=== PATIENT | female | born 1960 | race Caucasian/White ===

== ENCOUNTER 2018-06-12 17:32 | Emergency (ER) | payer MEDICARE, MEDICAID ==
[~2018-06-12] VITALS: Ht 160 cm; Wt 104.5 kg
[~2018-06-12 17:32] MED LIST: ALBU18HF2 INH; ALBU8.5H8 IH; ASPI81TA49 PO; CARV3.12 PO; FURO40TA4 PO; LISI-604 PO
[2018-06-12 18:20] VITALS: BP 125/91
== END 2018-06-12 18:22 | disposition home or self-care (01) ==
LOC: ER 17:32
DX: S60.454A Superficial foreign body of right ring finger, initial encounter (principal); F15.90 Other stimulant use, unspecified, uncomplicated; J44.9 Chronic obstructive pulmonary disease, unspecified; Z88.5 Allergy status to narcotic agent; Z88.1 Allergy status to other antibiotic agents; Z79.82 Long term (current) use of aspirin; Z79.899 Other long term (current) drug therapy; W45.8XXA Other foreign body or object entering through skin, initial encounter; Y93.89 Activity, other specified; Y92.89 Other specified places as the place of occurrence of the external cause; Y99.8 Other external cause status
CPT/HCPCS: 99284

== ENCOUNTER → 2021-04-28 | Emergency (ER) | payer MEDICARE, MEDICAID ==
[~2021-04-28] VITALS: Ht 160 cm; Wt 113.6 kg
[~2021-04-28] MED LIST changes: +ALBU8.5H17 IH; -ALBU8.5H8 IH; -LISI-604 PO; +LISI5TAB22 PO
[2021-04-28 14:00] VITALS: BP 111/64
[2021-04-28 15:10] LABS: CLARITY,URINE SLIGHTLY CLOUDY (Clear); COLOR,URINE YELLOW (Yellow); GLUCOSE, URINE NEGATIVE (Neg); KETONES,URINE NEGATIVE (Neg); LEUKOCYTE ESTERASE ,URINE NEGATIVE (Neg); NITRITES, URINE NEGATIVE (Neg); OCCULT BLOOD,URINE NEGATIVE (Neg); PH,URINE 5.5 (4.8-8.0); PROTEIN,URINE NEGATIVE (Neg); UROBILINOGEN,URINE 0.2 E.U/dL (0.2-1.0)
[2021-04-28 15:13] LABS: UA COLLECTION TYPE CLN CATCH MIDSTREAM
[2021-04-28 15:16] LABS: BACTERIA,URINE FEW /HPF (Neg); SQUAMOUS EPITHELIAL CELL,UR MANY /LPF (FEW)
[2021-04-28 15:18] LABS: RBC,URINE 0-2 /HPF (0-2); WBC,URINE 0-4 /HPF (0-4)
[2021-04-28 15:21] LABS: BASOPHILS # (AUTO) 0.1 X10'3 (0-0.2); BASOPHILS % (AUTO) 0.9 % (0-1); EOSINOPHILS # (AUTO) 0.6 X10'3 (0-0.9); EOSINOPHILS % (AUTO) 4.5 % (0-6); HEMATOCRIT 48.7 % (35.0-45.0); HEMOGLOBIN 16.4 g/dl (12.0-16.0); LYMPHOCYTES # (AUTO) 2.9 X10'3 (1.1-4.8); LYMPHOCYTES % (AUTO) 23.2 % (21-51); MEAN CORPUSCULAR HEMOGLOBIN 31.7 PG (27.0-31.0); MEAN CORPUSCULAR HGB CONC 33.7 g/dL (33.0-36.5); MEAN CORPUSCULAR VOLUME 94.3 FL (78-98); MEAN PLATELET VOLUME 8.7 FL (7.4-10.4); MONOCYTES # (AUTO) 0.8 X10'3 (0-0.9); MONOCYTES % (AUTO) 6.5 % (2-12); NEUTROPHILS # (AUTO) 8.1 X10'3 (1.8-7.7); NEUTROPHILS % (AUTO) 64.9 % (42-75); PLATELET COUNT 311 X10'3 (140-440); RED BLOOD COUNT 5.16 X10'6 (4.20-5.60); RED CELL DISTRIBUTION WIDTH 12.9 % (11.5-14.5); WHITE BLOOD COUNT 12.4 X10'3 (4.5-11.0)
[2021-04-28 15:34] LABS: ALANINE AMINOTRANSFERASE 33 U/L (12-78); ALBUMIN 3.7 G/DL (3.4-5.0); ALBUMIN/GLOBULIN RATIO 1.1 (1.1-1.5); ALKALINE PHOSPHATASE 116 IU/L (46-116); ANION GAP 12 (8-16); ASPARTATE AMINO TRANSFERASE 19 U/L (10-37); BILIRUBIN,TOTAL 0.3 MG/DL (0.1-1.0); BLOOD UREA NITROGEN 10 MG/DL (7-18); CALCIUM 8.6 MG/DL (8.5-10.1); CHLORIDE 105 MMOL/L (99-107); CREATININE 0.91 MG/DL (0.40-0.90); POTASSIUM 4.9 MMOL/L (3.5-5.1); SODIUM 142 MMOL/L (135-145); eGFR 63 ML/MIN
[2021-04-28 15:47] LABS: GLUCOSE 111 MG/DL (70-104)
== END | disposition home or self-care (01) ==
LOC: ER 13:26
DX: R10.9 Unspecified abdominal pain (principal); R39.15 Urgency of urination; R10.31 Right lower quadrant pain; R10.32 Left lower quadrant pain; Z85.51 Personal history of malignant neoplasm of bladder; F15.90 Other stimulant use, unspecified, uncomplicated; Z79.899 Other long term (current) drug therapy; Z88.8 Allergy status to other drugs, medicaments and biological substances; Z88.1 Allergy status to other antibiotic agents; Z79.82 Long term (current) use of aspirin
CPT/HCPCS: 36415; 80053; 81001; 85025; 99281; 99283

== ENCOUNTER 2022-09-24 08:34 | Inpatient (IN) | payer MEDICARE, MEDICAID ==
[~2022-09-24] VITALS: Ht 161.3 cm; Wt 113.6 kg
[2022-09-24] VITALS (26 sets, daily range): BP systolic 116–155; BP diastolic 55–86; PULSE 80–109; RESP 12–24; TEMP 97.7–99.1; O2SAT 88–96
[2022-09-24 09:08] LABS: BASOPHILS # (AUTO) 0.2 X10'3 (0-0.2); BASOPHILS % (AUTO) 1.5 % (0-1); EOSINOPHILS # (AUTO) 0.4 X10'3 (0-0.9); EOSINOPHILS % (AUTO) 3.6 % (0-6); HEMATOCRIT 50.8 % (35.0-45.0); HEMOGLOBIN 16.9 g/dl (12.0-16.0); LYMPHOCYTES # (AUTO) 2.3 X10'3 (1.1-4.8); LYMPHOCYTES % (AUTO) 19.3 % (21-51); MEAN CORPUSCULAR HEMOGLOBIN 31.8 PG (27.0-31.0); MEAN CORPUSCULAR HGB CONC 33.3 g/dL (33.0-36.5); MEAN CORPUSCULAR VOLUME 95.6 FL (78-98); MEAN PLATELET VOLUME 9.3 FL (7.4-10.4); MONOCYTES # (AUTO) 0.8 X10'3 (0-0.9); MONOCYTES % (AUTO) 6.8 % (2-12); NEUTROPHILS # (AUTO) 8.1 X10'3 (1.8-7.7); NEUTROPHILS % (AUTO) 68.8 % (42-75); PLATELET COUNT 260 X10'3 (140-440); RED BLOOD COUNT 5.32 X10'6 (4.20-5.60); RED CELL DISTRIBUTION WIDTH 13.7 % (11.5-14.5); WHITE BLOOD COUNT 11.8 X10'3 (4.5-11.0)
[2022-09-24 09:56] LABS: ALANINE AMINOTRANSFERASE 49 U/L (12-78); ALBUMIN 3.6 G/DL (3.4-5.0); ALBUMIN/GLOBULIN RATIO 1.1 (1.1-1.5); ALKALINE PHOSPHATASE 150 IU/L (46-116); ANION GAP 12 (8-16); ASPARTATE AMINO TRANSFERASE 22 U/L (10-37); BILIRUBIN,TOTAL 0.2 MG/DL (0.1-1.0); BLOOD UREA NITROGEN 15 MG/DL (7-18); CHLORIDE 104 MMOL/L (99-107); CREATININE 0.79 MG/DL (0.40-0.90); LIPASE 148 U/L (73-393); POTASSIUM 4.6 MMOL/L (3.5-5.1); SODIUM 139 MMOL/L (135-145); TOTAL CARBON DIOXIDE 23.2 MMOL/L (24-32); TOTAL PROTEIN 6.9 G/DL (6.4-8.2); eGFR 74 ML/MIN
[2022-09-24 10:07] LABS: CALCIUM 9.3 MG/DL (8.5-10.1)
[2022-09-24 10:09] LABS: GLUCOSE 148 MG/DL (70-104)
[2022-09-24 10:17] LABS: CLARITY,URINE CLEAR (Clear); COLOR,URINE YELLOW (Yellow); GLUCOSE, URINE NEGATIVE (Neg); KETONES,URINE NEGATIVE (Neg); LEUKOCYTE ESTERASE ,URINE NEGATIVE (Neg); NITRITES, URINE NEGATIVE (Neg); OCCULT BLOOD,URINE NEGATIVE (Neg); PROTEIN,URINE NEGATIVE (Neg)
[2022-09-24 10:18] LABS: UA COLLECTION TYPE VOIDED
[2022-09-24 10:21] LABS: URINE HCG NEGATIVE (NEG)
[2022-09-24] MEDS ORDERED: ondansetron 4mg rapidly disintigrating tab PO ONE (10:45)
[2022-09-24] MEDS ORDERED: fentaNYL/PF 50MCG/1 ML 2ML syringe IM ONE (10:45)
[2022-09-24] MEDS ORDERED: dicyclomine 10mg/ml 2ml ampule IM ONE (10:45)
[2022-09-24] MEDS ORDERED: fentaNYL/PF 50MCG/1 ML 2ML syringe IV ONE (12:05)
[2022-09-24] MEDS ORDERED: ketorolac trometh. 30mg/ml inj. IV ONE (12:05)
[2022-09-24] MEDS ORDERED: normal saline 1000ml 1,000 ML IV ONE (12:15)
[2022-09-24] MEDS ORDERED: piperacillin/tazo 4.5gm/100ml 100 ML IV ONE (12:29)
[2022-09-24] MEDS ORDERED: magnesium hydroxide 30ml (MOM) UD suspension PO PRN ×2 (13:20→13:30)
[2022-09-24] MEDS ORDERED: HYDROmorphone/PF 0.2 MG/ML SYRINGE IV PRN ×2 (13:20→13:30)
[2022-09-24] MEDS ORDERED: MESSAGE TO PHARMACY PO ONE ×2 (13:20)
[2022-09-24] MEDS ORDERED: potassium Cl 40MEQ/1/2NS 520ml 520 ML IV PRN ×2 (13:20→13:30)
[2022-09-24] MEDS ORDERED: potassium Cl 20 mEq SR tablet PO PRN ×4 (13:20→13:30)
[2022-09-24] MEDS ORDERED: insulin Lispro (HumaLOG) vial - multi-dose SQ SCH (13:20)
[2022-09-24] MEDS ORDERED: ondansetron/PF 4mg/2ml inj IV PRN ×3 (13:20→14:40)
[2022-09-24] MEDS ORDERED: HYDROmorphone inj. 0.5 MG/0.5 ML DISP.SYRIN IV PRN (13:20)
[2022-09-24] MEDS ORDERED: docusate sod 100mg capsule PO PRN ×2 (13:20→13:30)
[2022-09-24] MEDS ORDERED: magnesium 2GM in 50ml NS 50 ML IV PRN ×2 (13:20→13:30)
[2022-09-24] MEDS ORDERED: magnesium Cl slow-release 64mg tablet PO PRN ×2 (13:20→13:30)
[2022-09-24] MEDS ORDERED: DEXTROSE 15 GM of carb/4 tabs (each vial/BOTTLE has 4 tablets) PO PRN ×4 (13:20→13:30)
[2022-09-24] MEDS ORDERED: mag hydrox/Alum hydrox/simeth 30ml oral suspension PO PRN ×2 (13:20→13:30)
[2022-09-24] MEDS ORDERED: glucagon, human recombinant 1mg kit SUBCUT PRN ×2 (13:20→13:30)
[2022-09-24] MEDS ORDERED: normal saline 1000ml 1,000 ML IV SCH (13:20)
[2022-09-24] MEDS ORDERED: magnesium 4gm in 100ml NS 100 ML IV PRN ×2 (13:20→13:30)
[2022-09-24] MEDS ORDERED: dextrose 50%-water 50ml dispensing syringe IV PRN ×4 (13:20→13:30)
[2022-09-24] MEDS ORDERED: pantoprazole 40mg IV 40 MG in normal saline 100ml IV soln 100 ML IV ONE (13:25)
[2022-09-24 13:43] LABS: HEMOGLOBIN A1C 6.5 % (4.5-6.2)
[2022-09-24] MEDS ORDERED: methylPREDNISolone sod succ 125mg/2ml vial IV ONE (13:45)
--- NOTE | 2022-09-24 14:25 | NUR ---
Pt transferred to OR via guravinger.
[2022-09-24] MEDS ORDERED: LIDOcaine 1% (10mg/ml)w/preservative inj. 20ml MDV ONE (14:29)
[2022-09-24] MEDS ORDERED: BUPIVAcaine/PF 2.5 mg/ml (0.25%) 30ml vial ONE (14:29)
[2022-09-24] MEDS ORDERED: albuterol 2.5 MG/3 ML nebule NEB ONE (14:40)
[2022-09-24] MEDS ORDERED: morphine 4 MG/ML inj SYRINge IV PRN (14:40)
[2022-09-24] MEDS ORDERED: ringers solution, lacted 1,000 ML IV SCH (14:40)
[2022-09-24] MEDS ORDERED: fentaNYL/PF 50MCG/1 ML 2ML syringe IV PRN ×2 (14:40)
[2022-09-24] MEDS ORDERED: hydrALAZINE 20mg/ml inj. IV PRN ×2 (14:40→15:30)
[2022-09-24] MEDS ORDERED: labetalol 20mg/4ml (5mg/ml) syringe IV PRN (14:40)
[2022-09-24] MEDS ORDERED: morphine 2 MG/ML inj. syringe IV PRN (14:40)
[2022-09-24] MEDS: ipratropium/albuterol 3ml nebule NEB SCH ×2 (14:50→19:40)
[2022-09-24] MEDS ORDERED: METF-1203 PO (15:01)
[2022-09-24] MEDS ORDERED: METO-395 PO (15:02)
[2022-09-24] MEDS ORDERED: ROSU5TAB12 PO (15:02)
[2022-09-24] MEDS ORDERED: BENA10TA75 PO (15:02)
[2022-09-24] MEDS ORDERED: FLUT15.815 (15:03)
[2022-09-24] MEDS ORDERED: MULT-1085 PO (15:04)
[2022-09-24] MEDS ORDERED: TIOT4MIS3 INH (15:05)
[2022-09-24] MEDS ORDERED: fluticasone nasal spray 16GM bottle NS PRN (15:25)
[2022-09-24] MEDS ORDERED: heparin, porcine 5000 units/ml vial SQ SCH ×2 (16:00)
[2022-09-24] MEDS ORDERED: dexamethasone sod phosphate 10mg/ml inj ONE (16:05)
[2022-09-24] MEDS ORDERED: sevoflurane 250ml liquid IH ONE (16:05)
[2022-09-24] MEDS ORDERED: fentaNYL/PF 50MCG/1 ML 2ML syringe ONE ×2 (16:13→16:27)
[2022-09-24] MEDS ORDERED: midazolam 1 mg/ML 2ml injection ONE (16:17)
[2022-09-24] MEDS ORDERED: LIDOcaine 2% (20mg/ml) 5ml vial ONE (16:25)
[2022-09-24] MEDS ORDERED: propofol inj 20 ML IV ONE (16:25)
[2022-09-24] MEDS ORDERED: ondansetron/PF 4mg/2ml inj ONE (16:25)
[2022-09-24] MEDS ORDERED: rocuronium 10mg/ml inj IV ONE (16:25)
[2022-09-24] MEDS ORDERED: sugammadex 200mg/2ml injection IV ONE (16:43)
[2022-09-24] MEDS ORDERED: INDOCYANINE GREEN 25 MG/10 ML VIAL IV ONE (16:46)
[2022-09-24] MEDS ORDERED: BUPIVAcaine/PF 2.5 mg/ml (0.25%) 30ml vial IJ ONE (16:53)
[2022-09-24] MEDS ORDERED: LIDOcaine 1% 30ml preserv. free vial IJ ONE (16:54)
[2022-09-24] MEDS ORDERED: naloxone 0.4 mg/ml inj IV PRN (18:10)
[2022-09-24] MEDS ORDERED: HYDROcodone/acetaminophen 5mg/325mg tablet PO PRN (18:10)
--- NOTE | 2022-09-24 18:10 | NUR ---
Received from OR via HOPITAL BED TO RR #3, accompanied by Anesthesiologist and report given by Anesthesiologist, TATIANNA. PATIENT STILL SLEEPING, ORAL AIRWAY IN PLACE, NO S/S OF PAIN, V/S WNL, SCD ON, 18G L FA WITH LR RUNNING, ABDOMEN LAP SITES X 3 CDI W/NO S/S OF COMPLICATIONS. MYRON DRAIN ON RUQ DRAINING.
--- NOTE | 2022-09-24 18:54 | NUR ---
REMOVED ORAL AIRWAY, PATIENT IS RESPONDING TO VOICE AND IS ABLE TO MOVE ALL EXTREMITIES. NO COMPLAINTS OF PAIN AT THIS TIME. WILL CONTINUE TO ASSESS.
--- NOTE | 2022-09-24 19:58 | NUR ---
Patient in room PACU 2. I have received report from DIANN Davies and had the opportunity to ask questions and assume patient care.
[2022-09-24] MEDS: K and/or MAG REPLACEMENT MC SCH (20:00)
[2022-09-24] MEDS ORDERED: K and/or MAG REPLACEMENT MC SCH (20:00)
--- NOTE | 2022-09-24 20:00 | NUR ---
PATIENT TRANSFERRED FROM TO [facility]. GAVE REPORT TO DIANN MCLAUGHLIN AND ALL QUESTIONS, COMMENTS, AND CONCERNS WERE ANSWERED AT THIS TIME. VSS, 3L NC SPO2 92%. MYRON SECURED AND DRAINING ADEQUATELY. ABD LAP SITES X3 CDI. NO COMPLAINTS OF PAIN AT THIS TIME.
[2022-09-24] MEDS: heparin, porcine 5000 units/ml vial SQ SCH (20:19)
[2022-09-24] MEDS: normal saline 1000ml 1,000 ML IV SCH (20:23)
[2022-09-24] MEDS ORDERED: insulin glargine (Lantus) pen - multi-dose SQ SCH (21:00)
[2022-09-24] MEDS: piperacillin/tazo 3.375gm/50ml 50 ML IV SCH (21:02)
[2022-09-24] MEDS: insulin glargine (Lantus) pen - multi-dose SQ SCH (22:10)
[2022-09-24] MEDS: acetaminophen 325mg tablet PO PRN (23:27)
[2022-09-25] VITALS (15 sets, daily range): BP systolic 100–117; BP diastolic 51–60; PULSE 70–111; RESP 16–22; TEMP 97.7–100.1; O2SAT 86–99
[2022-09-25] MEDS: normal saline 1000ml 1,000 ML IV SCH (00:09)
[2022-09-25] MEDS: ipratropium/albuterol 3ml nebule NEB SCH ×4 (02:15→20:17)
[2022-09-25] MEDS: piperacillin/tazo 3.375gm/50ml 50 ML IV SCH ×3 (04:21→20:20)
--- NOTE | 2022-09-25 05:14 | NUR ---
Pt. walked 300f with nursing.She did very well.
--- NOTE | 2022-09-25 06:13 | NUR ---
I have received report from Teresa TIDWELL and had the opportunity to ask questions and assume patient care.
--- NOTE | 2022-09-25 06:23 | NUR ---
Problems reprioritized. Patient report given, questions answered & plan of care reviewed with DIANN Pereira.
[2022-09-25] MEDS: Tiotropium Br/Olodaterol HCl (Stiolto Respimat Inhal Spray) INH SCH (08:00)
[2022-09-25] MEDS: K and/or MAG REPLACEMENT MC SCH ×2 (08:00→20:00)
[2022-09-25] MEDS: insulin Lispro (HumaLOG) vial - multi-dose SQ SCH ×2 (08:51→18:56)
[2022-09-25] MEDS: heparin, porcine 5000 units/ml vial SQ SCH ×2 (08:59→20:21)
[2022-09-25] MEDS: HYDROmorphone inj. 0.5 MG/0.5 ML DISP.SYRIN IV PRN ×2 (09:02→16:07)
--- NOTE | 2022-09-25 09:57 | NUR ---
DM consult: Per EMR pt with T2DM, well controlled with A1c 6.5%. DM education not warranted at this time. Will continue to follow. Addendum: 09/25/22 at [address] Amended: Links added.
--- NOTE | 2022-09-25 18:00 | NUR ---
Patient in room ORTHO 4015. I have received report from DIANN Pereira and had the opportunity to ask questions and assume patient care.
--- NOTE | 2022-09-25 18:14 | NUR ---
Report given to Teresa TIDWELL
--- NOTE | 2022-09-25 18:30 | NUR ---
Patient in room ORTHO 4015. I have received report from DIANN Pereira and had the opportunity to ask questions and assume patient care.
[2022-09-25] MEDS: insulin glargine (Lantus) pen - multi-dose SQ SCH (21:45)
[2022-09-25] MEDS: acetaminophen 325mg tablet PO PRN (21:49)
[2022-09-26] VITALS (11 sets, daily range): BP systolic 116–139; BP diastolic 60–76; PULSE 56–95; RESP 18–22; TEMP 97.9–98.6; O2SAT 88–94
[2022-09-26] MEDS: ipratropium/albuterol 3ml nebule NEB SCH ×4 (02:44→20:38)
[2022-09-26] MEDS: HYDROcodone/acetaminophen 10/325mg tab PO PRN ×2 (03:55→23:09)
[2022-09-26] MEDS: piperacillin/tazo 3.375gm/50ml 50 ML IV SCH ×3 (03:58→20:27)
[2022-09-26 04:40] LABS: ALANINE AMINOTRANSFERASE 59 U/L (12-78); ALBUMIN 2.8 G/DL (3.4-5.0); ALBUMIN/GLOBULIN RATIO 0.8 (1.1-1.5); ALKALINE PHOSPHATASE 65 IU/L (46-116); ANION GAP 7 (8-16); ASPARTATE AMINO TRANSFERASE 32 U/L (10-37); BILIRUBIN,TOTAL 0.4 MG/DL (0.1-1.0); BLOOD UREA NITROGEN 10 MG/DL (7-18); BUN/CREATININE RATIO 15.9 (10.0-20.0); CALCIUM 8.2 MG/DL (8.5-10.1); CHLORIDE 101 MMOL/L (99-107); CREATININE 0.63 MG/DL (0.40-0.90); GLUCOSE 150 MG/DL (70-104); POTASSIUM 4.5 MMOL/L (3.5-5.1); SODIUM 136 MMOL/L (135-145); TOTAL CARBON DIOXIDE 27.6 MMOL/L (24-32); TOTAL PROTEIN 6.3 G/DL (6.4-8.2); eGFR > 90 ML/MIN
--- NOTE | 2022-09-26 06:06 | NUR ---
Problems reprioritized. Patient report given, questions answered & plan of care reviewed with DIANN Pereira.
--- NOTE | 2022-09-26 06:07 | NUR ---
Patient in room ORTHO 4015. I have received report from Chantal TIDWELL and had the opportunity to ask questions and assume patient care.
[2022-09-26] MEDS: Tiotropium Br/Olodaterol HCl (Stiolto Respimat Inhal Spray) INH SCH (06:49)
[2022-09-26] MEDS: heparin, porcine 5000 units/ml vial SQ SCH ×2 (07:34→20:29)
[2022-09-26] MEDS: K and/or MAG REPLACEMENT MC SCH ×2 (08:00→20:49)
[2022-09-26] MEDS: insulin Lispro (HumaLOG) vial - multi-dose SQ SCH ×3 (08:48→18:46)
--- NOTE | 2022-09-26 10:09 | NUR ---
O2 Sat at rest on room air:_77__% If below 89%: Recovery O2 Sat at rest on ___LPM:_5__%:__89_% via_NC_(mask/nasal cannula, etc..) No further documentation is necessary. If O2 Sat did not drop below 89% on room air,ambulate patient on room air. O2 Sat while ambulating on room air:___% Recovery O2 Sat while ambulating on ___LPM:___% No further documentation is necessary. If patient does not drop below 89% while ambulating, he/she does not qualify for home O2. Addendum: 09/26/22 at 1011 by Kelli Chamorro RN Recovery O2 Sat at rest on __5_LPM:_88__%:__90_% via_NC_(mask/nasal cannula, etc..) No further documentation is necessary.
[2022-09-26] MEDS: HYDROmorphone inj. 0.5 MG/0.5 ML DISP.SYRIN IV PRN (10:31)
--- NOTE | 2022-09-26 10:41 | NUR ---
PAGER ID: [phone] MESSAGE: [id number] She is very wheezy and coughing a lot, SOB. RT and I agree that she may benfit from some lasix...??? Kelli [phone]
[2022-09-26] MEDS ORDERED: methylPREDNISolone sod succ 125mg/2ml vial IV SCH (10:50)
[2022-09-26] MEDS ORDERED: furosemide 20 MG/2 ML vial IV ONE (10:50)
[2022-09-26] MEDS ORDERED: HYDROmorphone inj. 0.5 MG/0.5 ML DISP.SYRIN IV PRN (10:55)
[2022-09-26] MEDS: budesonide 0.5mg/2ml UD nebule IH SCH ×2 (10:55→20:38)
[2022-09-26] MEDS ORDERED: HYDROmorphone/PF 0.2 MG/ML SYRINGE IV PRN (10:55)
[2022-09-26 11:34] LABS: ABG BASE EXCESS 3.1 mmol/L (-2.0-2.0); ABG HCO3 31.5 mmol/L (22.0-26.0); ABG OXYGEN SATURATION 91.5 % (94-97); ABG PCO2 (T) 63.5 mmHg (32.0-45.0); ABG PO2 (T) 62.4 mmHg (75.0-100.0); ALLEN'S TEST POSITIVE; FLOW 5 L/min; FMetHb 0.4 % (0.0-1.5); FO2Hb 90.2 % (94-97); TOTAL HEMOGLOBIN 15.9 G/dl (12.0-16.0)
[2022-09-26 17:54] LABS: ABG HCO3 26.7 mmol/L (22.0-26.0); ABG PO2 (T) 59.2 mmHg (75.0-100.0); ALLEN'S TEST POSITIVE; FCOHb 0.7 % (0.0-3.9); FLOW 5 L/min; FMetHb 0.3 % (0.0-1.5); FO2Hb 90.1 % (94-97); TOTAL HEMOGLOBIN 16.1 G/dl (12.0-16.0)
--- NOTE | 2022-09-26 18:00 | NUR ---
Patient in room ORTHO 4015. I have received report from DIANN Pereira and had the opportunity to ask questions and assume patient care.
--- NOTE | 2022-09-26 18:09 | NUR ---
Problems reprioritized. Patient report given, questions answered & plan of care reviewed with Snow TIDWELL.
[2022-09-26] MEDS: methylPREDNISolone sod succ/PF 40mg inj. IV SCH (20:28)
[2022-09-26] MEDS: insulin glargine (Lantus) pen - multi-dose SQ SCH (20:46)
[2022-09-27] VITALS (16 sets, daily range): BP systolic 107–134; BP diastolic 58–68; PULSE 50–104; RESP 18–23; TEMP 97.5–98.1; O2SAT 73–95
[2022-09-27] MEDS: normal saline 1000ml 1,000 ML IV SCH (00:26)
[2022-09-27] MEDS: ipratropium/albuterol 3ml nebule NEB SCH ×4 (02:57→20:35)
[2022-09-27] MEDS: piperacillin/tazo 3.375gm/50ml 50 ML IV SCH ×3 (03:47→19:48)
--- NOTE | 2022-09-27 06:08 | NUR ---
Problems reprioritized. Patient report given, questions answered & plan of care reviewed with DIANN Pereira.
[2022-09-27] MEDS: budesonide 0.5mg/2ml UD nebule IH SCH ×2 (07:55→20:35)
[2022-09-27] MEDS ORDERED: enoxaparin 100mg/ml syringe SUBCUT SCH (08:00)
[2022-09-27] MEDS: Tiotropium Br/Olodaterol HCl (Stiolto Respimat Inhal Spray) INH SCH (08:00)
[2022-09-27] MEDS: methylPREDNISolone sod succ/PF 40mg inj. IV SCH ×2 (08:38→19:49)
[2022-09-27] MEDS: heparin, porcine 5000 units/ml vial SQ SCH ×2 (08:39→19:49)
[2022-09-27] MEDS: K and/or MAG REPLACEMENT MC SCH ×2 (08:40→20:00)
[2022-09-27] MEDS: insulin Lispro (HumaLOG) vial - multi-dose SQ SCH ×3 (08:43→19:35)
--- NOTE | 2022-09-27 11:00 | NUR ---
Patient found by window in chair with no O2 on. O2 sats were at 77%. RT placed 6L O2 on patient to bring them up to the high 80's. Patient SOB and falling asleep in chiar.
[2022-09-27] MEDS ORDERED: AMOX-419 PO (15:25)
--- NOTE | 2022-09-27 15:57 | NUR ---
Message sent to Dr. Harmon concerning patients discharge. Patient is not to be discharged at this time.
--- NOTE | 2022-09-27 16:02 | NUR ---
O2 Sat at rest on room air: 79% If below 89%: Recovery O2 Sat at rest on 4 LPM: 92%: 94% via__Nasal Cannula (mask/nasal cannula, etc..) No further documentation is necessary. If O2 Sat did not drop below 89% on room air,ambulate patient on room air. O2 Sat while ambulating on room air:___% Recovery O2 Sat while ambulating on ___LPM:___% No further documentation is necessary. If patient does not drop below 89% while ambulating, he/she does not qualify for home O2.
--- NOTE | 2022-09-27 18:31 | NUR ---
Report given to Dayo TIDWELL
[2022-09-27] MEDS: insulin glargine (Lantus) pen - multi-dose SQ SCH (22:23)
[2022-09-28] VITALS (12 sets, daily range): BP systolic 102–136; BP diastolic 65–91; PULSE 54–91; RESP 16–24; TEMP 97.5–98.1; O2SAT 2–97
[2022-09-28] MEDS: ipratropium/albuterol 3ml nebule NEB SCH ×5 (02:51→20:57)
[2022-09-28] MEDS: piperacillin/tazo 3.375gm/50ml 50 ML IV SCH ×3 (04:10→19:55)
--- NOTE | 2022-09-28 06:17 | NUR ---
Patient in room ORTHO [facility]. I have received report from Dayo TIDWELL and had the opportunity to ask questions and assume patient care. Addendum: 09/28/22 at 0659 by Kelli Chamorro RN Room [facility]
--- NOTE | 2022-09-28 06:28 | NUR ---
Problems reprioritized. Patient report given, questions answered & plan of care reviewed with DESTINY. Addendum: 09/28/22 at 0628 by Pierre Craig RN Amended: Links added.
[2022-09-28] MEDS: methylPREDNISolone sod succ/PF 40mg inj. IV SCH ×2 (07:53→19:42)
[2022-09-28] MEDS: heparin, porcine 5000 units/ml vial SQ SCH ×3 (07:53→19:42)
[2022-09-28] MEDS: K and/or MAG REPLACEMENT MC SCH ×2 (08:00→20:00)
[2022-09-28] MEDS: Tiotropium Br/Olodaterol HCl (Stiolto Respimat Inhal Spray) INH SCH (08:00)
[2022-09-28] MEDS: insulin Lispro (HumaLOG) vial - multi-dose SQ SCH ×3 (08:07→19:45)
[2022-09-28] MEDS: budesonide 0.5mg/2ml UD nebule IH SCH ×2 (08:19→20:57)
--- NOTE | 2022-09-28 09:54 | NUR ---
Paged CM for O2 home.
[2022-09-28] MEDS ORDERED: nicotine 21mg patch - 24 hr TD ONE (10:45)
[2022-09-28] MEDS ORDERED: LORazepam 2 mg/ml vial IV ONE (10:45)
[2022-09-28 11:20] LABS: BASOPHILS # (AUTO) 0.1 X10'3 (0-0.2); BASOPHILS % (AUTO) 0.5 % (0-1); EOSINOPHILS % (AUTO) 0.3 % (0-6); HEMATOCRIT 45.9 % (35.0-45.0); HEMOGLOBIN 15.1 g/dl (12.0-16.0); LYMPHOCYTES # (AUTO) 1.4 X10'3 (1.1-4.8); LYMPHOCYTES % (AUTO) 9.9 % (21-51); MEAN CORPUSCULAR HEMOGLOBIN 31.8 PG (27.0-31.0); MEAN CORPUSCULAR HGB CONC 32.8 g/dL (33.0-36.5); MEAN CORPUSCULAR VOLUME 96.8 FL (78-98); MEAN PLATELET VOLUME 9.8 FL (7.4-10.4); MONOCYTES % (AUTO) 7.3 % (2-12); NEUTROPHILS # (AUTO) 11.6 X10'3 (1.8-7.7); PLATELET COUNT 295 X10'3 (140-440); RED BLOOD COUNT 4.74 X10'6 (4.20-5.60); RED CELL DISTRIBUTION WIDTH 13.6 % (11.5-14.5); WHITE BLOOD COUNT 14.2 X10'3 (4.5-11.0)
[2022-09-28 11:32] LABS: ALANINE AMINOTRANSFERASE 96 U/L (12-78); ALBUMIN 2.9 G/DL (3.4-5.0); ALBUMIN/GLOBULIN RATIO 0.8 (1.1-1.5); ALKALINE PHOSPHATASE 71 IU/L (46-116); ANION GAP 10 (8-16); ASPARTATE AMINO TRANSFERASE 43 U/L (10-37); BILIRUBIN,TOTAL 0.3 MG/DL (0.1-1.0); BLOOD UREA NITROGEN 19 MG/DL (7-18); CALCIUM 9.2 MG/DL (8.5-10.1); CHLORIDE 102 MMOL/L (99-107); CREATININE 0.73 MG/DL (0.40-0.90); POTASSIUM 4.4 MMOL/L (3.5-5.1); SODIUM 140 MMOL/L (135-145); TOTAL CARBON DIOXIDE 27.9 MMOL/L (24-32); TOTAL PROTEIN 6.5 G/DL (6.4-8.2); eGFR 81 ML/MIN
[2022-09-28 11:37] LABS: GLUCOSE 113 MG/DL (70-104)
[2022-09-28] MEDS ORDERED: LORazepam 1 MG tablet PO PRN (17:30)
--- NOTE | 2022-09-28 18:22 | NUR ---
Report given to MONSERRAT TIDWELL.
[2022-09-28] MEDS: insulin glargine (Lantus) pen - multi-dose SQ SCH (21:50)
[2022-09-29] VITALS (9 sets, daily range): BP systolic 95–125; BP diastolic 63–71; PULSE 72–89; RESP 14–18; TEMP 97.6–98.2; O2SAT 92–96
[2022-09-29] MEDS: normal saline 1000ml 1,000 ML IV SCH (00:26)
[2022-09-29] MEDS: ipratropium/albuterol 3ml nebule NEB SCH ×2 (02:37→08:07)
[2022-09-29] MEDS: piperacillin/tazo 3.375gm/50ml 50 ML IV SCH (04:23)
--- NOTE | 2022-09-29 06:49 | NUR ---
Patient in room ORTHO 4015. I have received report from Elle RN and had the opportunity to ask questions and assume patient care.
[2022-09-29] MEDS: Tiotropium Br/Olodaterol HCl (Stiolto Respimat Inhal Spray) INH SCH (08:00)
[2022-09-29] MEDS: K and/or MAG REPLACEMENT MC SCH (08:00)
[2022-09-29] MEDS: methylPREDNISolone sod succ/PF 40mg inj. IV SCH (08:00)
[2022-09-29] MEDS: budesonide 0.5mg/2ml UD nebule IH SCH (08:06)
--- NOTE | 2022-09-29 09:23 | NUR ---
O2 Sat at rest on room air:_88__% If below 89%: Recovery O2 Sat at rest on __2_LPM:_95__%:_95__% via nasal cannula No further documentation is necessary. If O2 Sat did not drop below 89% on room air,ambulate patient on room air. O2 Sat while ambulating on room air:___% Recovery O2 Sat while ambulating on ___LPM:___% No further documentation is necessary. If patient does not drop below 89% while ambulating, he/she does not qualify for home O2.
[2022-09-29] MEDS: insulin Lispro (HumaLOG) vial - multi-dose SQ SCH (09:35)
--- NOTE | 2022-09-29 11:00 | NUR ---
I have reviewed and agree with interventions, assessments, and documentation by Zaida Cifuentes LVN.
[2022-09-29] MEDS ORDERED: nicotine 21mg patch - 24 hr TD ONE (11:25)
--- NOTE | 2022-09-29 12:36 | NUR ---
Message: [id number]-Mohinder Lama- ulises call me regarding this patient. ADIA Cerda [phone]
[2022-09-29] MEDS ORDERED: PRED10TA23 PO (13:21)
--- NOTE | 2022-09-29 13:59 | NUR ---
Patient discharged home today. All instructions were explained and all questions were answered. Patient alert and appropriate. Patient gathered all belongings and wheeled downstairs. Patient left in friends vehicle.
== END 2022-09-29 13:38 | disposition home or self-care (01) | DRG 417 ==
LOC: ER 08:34 → ED HOLD 13:24 → ER 13:27 → PACU 17:28 → ORTHO 4S 20:02
PROVIDERS: ADMIT Internal Medicine; ATTEND Internal Medicine
PROC: 8E0W4CZ Robotic Assisted Procedure of Trunk Region, Percutaneous Endoscopic Approach (ICD-10-PCS; 2022-09-24)
PROC: BF532Z0 Other Imaging of Gallbladder and Bile Ducts using Fluorescing Agent, Intraoperative (ICD-10-PCS; 2022-09-24)
PROC: 0FT44ZZ Resection of Gallbladder, Percutaneous Endoscopic Approach (ICD-10-PCS; principal; 2022-09-24 16:05)
PROC: 5A09357 Assistance with Respiratory Ventilation, Less than 24 Consecutive Hours, Continuous Positive Airway Pressure (ICD-10-PCS; 2022-09-27)
PROC: 5A09357 Assistance with Respiratory Ventilation, Less than 24 Consecutive Hours, Continuous Positive Airway Pressure (ICD-10-PCS; 2022-09-29)
DX: K80.00 Calculus of gallbladder with acute cholecystitis without obstruction (principal); J96.01 Acute respiratory failure with hypoxia; J96.02 Acute respiratory failure with hypercapnia; I50.22 Chronic systolic (congestive) heart failure; K82.1 Hydrops of gallbladder; Z68.41 Body mass index [BMI] 40.0-44.9, adult; J44.1 Chronic obstructive pulmonary disease with (acute) exacerbation; E66.01 Morbid (severe) obesity due to excess calories; F15.90 Other stimulant use, unspecified, uncomplicated; F17.210 Nicotine dependence, cigarettes, uncomplicated; I11.0 Hypertensive heart disease with heart failure; Z85.51 Personal history of malignant neoplasm of bladder; Z90.710 Acquired absence of both cervix and uterus; Z88.5 Allergy status to narcotic agent; Z88.8 Allergy status to other drugs, medicaments and biological substances; Z79.899 Other long term (current) drug therapy; Z79.82 Long term (current) use of aspirin; Z71.6 Tobacco abuse counseling
CPT/HCPCS: 36415; 36600; 71045; 74176; 76700; 80053; 81003; 81025; 82803; 82948; 83036; 83605; 83690; 83880; 84145; 84484; 85018; 85025; 87040; 88304; 93005; 93306; 94640; 94660; 94760; 99285; A4215; A4615; A4618; A6212; A6213; A6258; A6449; A7000; G0378; J0500; J1100; J1170; J1644; J1815; J1940; J2060; J2250; J2405; J2543; J2704; J2920; J2930; J3010; J3490; J7030; J7040; J7120

== ENCOUNTER 2022-12-22 15:41 | Emergency (ER) | payer MEDICARE, MEDICAID ==
[~2022-12-22] VITALS: Ht 160 cm; Wt 120.0 kg
[~2022-12-22 15:41] MED LIST changes: -ALBU8.5H17 IH; -ASPI81TA49 PO; +BENA10TA75 PO; -CARV3.12 PO; +FLUT15.815; -FURO40TA4 PO; -LISI5TAB22 PO; +METF-1203 PO; +METO-395 PO; +MULT-1085 PO; +ROSU5TAB12 PO; +TIOT4MIS3 INH
[2022-12-22 15:47] VITALS: RESP 18
[2022-12-22 17:20] VITALS: TEMP 97.3
[2022-12-22] MEDS ORDERED: ondansetron/PF 4mg/2ml inj IV ONE (18:10)
[2022-12-22] MEDS ORDERED: morphine 4 MG/ML inj SYRINge IV ONE (18:10)
[2022-12-22 18:13] LABS: BASOPHILS # (AUTO) 0.1 X10'3 (0-0.2); BASOPHILS % (AUTO) 0.6 % (0-1); EOSINOPHILS # (AUTO) 0.5 X10'3 (0-0.9); EOSINOPHILS % (AUTO) 3.6 % (0-6); HEMATOCRIT 51.8 % (35.0-45.0); HEMOGLOBIN 17.2 g/dl (12.0-16.0); LYMPHOCYTES % (AUTO) 15.7 % (21-51); MEAN CORPUSCULAR HEMOGLOBIN 32.2 PG (27.0-31.0); MEAN CORPUSCULAR HGB CONC 33.2 g/dL (33.0-36.5); MEAN CORPUSCULAR VOLUME 97.1 FL (78-98); MEAN PLATELET VOLUME 9.3 FL (7.4-10.4); MONOCYTES % (AUTO) 8.2 % (2-12); NEUTROPHILS # (AUTO) 9.2 X10'3 (1.8-7.7); NEUTROPHILS % (AUTO) 71.9 % (42-75); PLATELET COUNT 270 X10'3 (140-440); RED BLOOD COUNT 5.33 X10'6 (4.20-5.60); RED CELL DISTRIBUTION WIDTH 13.7 % (11.5-14.5); WHITE BLOOD COUNT 12.7 X10'3 (4.5-11.0)
[2022-12-22 18:28] LABS: ALANINE AMINOTRANSFERASE 38 U/L (12-78); ALBUMIN 3.7 G/DL (3.4-5.0); ALKALINE PHOSPHATASE 106 IU/L (46-116); AMYLASE 47 U/L (25-115); ANION GAP 9 (8-16); ASPARTATE AMINO TRANSFERASE 17 U/L (10-37); BILIRUBIN,TOTAL 0.6 MG/DL (0.1-1.0); BLOOD UREA NITROGEN 10 MG/DL (7-18); BUN/CREATININE RATIO 12.7 (10.0-20.0); CALCIUM 9.6 MG/DL (8.5-10.1); CHLORIDE 101 MMOL/L (99-107); CREATININE 0.79 MG/DL (0.40-0.90); POTASSIUM 4.2 MMOL/L (3.5-5.1); SODIUM 140 MMOL/L (135-145); TOTAL CARBON DIOXIDE 29.9 MMOL/L (24-32); TOTAL PROTEIN 7.4 G/DL (6.4-8.2); eCRCL 63 ML/MIN; eGFR 74 ML/MIN
[2022-12-22 18:30] LABS: GLUCOSE 117 MG/DL (70-104); LIPASE 43 U/L (16-77)
[2022-12-22] MEDS ORDERED: HYDROcodone/acetaminophen 5mg/325mg tablet PO ONE (20:55)
[2022-12-22] MEDS ORDERED: amox tr/potassium clavulanate 875/125mg TAB PO ONE (20:55)
[2022-12-22] MEDS ORDERED: HYDR-3965 PO ×2 (21:09→21:16)
[2022-12-22] MEDS ORDERED: AMOX-117 PO (21:09)
--- NOTE | 2022-12-22 22:00 | NUR ---
recieved pt from triage. Pt is a&o x4, ambulatory, good historian. Pt presents c known hernia and diverticulitis. Pt c/o abdominal pain. PIV established, VSS
[2022-12-22 22:01] VITALS: BP 117/69; PULSE 94; O2SAT 92
== END 2022-12-22 22:04 | disposition home or self-care (01) ==
LOC: ER 15:42
DX: K57.92 Diverticulitis of intestine, part unspecified, without perforation or abscess without bleeding (principal)
CPT/HCPCS: 36415; 74176; 80053; 82150; 83690; 85025; 96374; 96375; 99285; J2270; J2405

== ENCOUNTER 2023-02-22 11:05 | Day surgery (SDC) | payer MEDICARE, MEDICAID ==
[2023-02-18 15:16] LABS: BASOPHILS # (AUTO) 0.1 X10'3 (0-0.2); BASOPHILS % (AUTO) 1.1 % (0-1); EOSINOPHILS # (AUTO) 0.4 X10'3 (0-0.9); EOSINOPHILS % (AUTO) 4.6 % (0-6); HEMATOCRIT 49.6 % (35.0-45.0); HEMOGLOBIN 16.3 g/dl (12.0-16.0); LYMPHOCYTES # (AUTO) 2.4 X10'3 (1.1-4.8); LYMPHOCYTES % (AUTO) 25.7 % (21-51); MEAN CORPUSCULAR HEMOGLOBIN 31.8 PG (27.0-31.0); MEAN CORPUSCULAR HGB CONC 32.8 g/dL (33.0-36.5); MEAN CORPUSCULAR VOLUME 96.8 FL (78-98); MEAN PLATELET VOLUME 9.2 FL (7.4-10.4); MONOCYTES % (AUTO) 10.3 % (2-12); NEUTROPHILS # (AUTO) 5.5 X10'3 (1.8-7.7); NEUTROPHILS % (AUTO) 58.3 % (42-75); PLATELET COUNT 269 X10'3 (140-440); RED BLOOD COUNT 5.13 X10'6 (4.20-5.60); RED CELL DISTRIBUTION WIDTH 13.7 % (11.5-14.5); WHITE BLOOD COUNT 9.4 X10'3 (4.5-11.0)
[2023-02-18 15:19] LABS: ALANINE AMINOTRANSFERASE 34 U/L (12-78); ALBUMIN 3.3 G/DL (3.4-5.0); ALBUMIN/GLOBULIN RATIO 0.9 (1.1-1.5); ALKALINE PHOSPHATASE 110 IU/L (46-116); ANION GAP 6 (8-16); ASPARTATE AMINO TRANSFERASE 17 U/L (10-37); BILIRUBIN,TOTAL 0.3 MG/DL (0.1-1.0); BLOOD UREA NITROGEN 11 MG/DL (7-18); BUN/CREATININE RATIO 14.1 (10.0-20.0); CALCIUM 9.1 MG/DL (8.5-10.1); CHLORIDE 102 MMOL/L (99-107); CREATININE 0.78 MG/DL (0.40-0.90); POTASSIUM 4.3 MMOL/L (3.5-5.1); SODIUM 137 MMOL/L (135-145); TOTAL CARBON DIOXIDE 29.3 MMOL/L (24-32); TOTAL PROTEIN 6.8 G/DL (6.4-8.2); eGFR 75 ML/MIN
[2023-02-18 15:22] LABS: GLUCOSE 111 MG/DL (70-104)
[2023-02-22] VITALS (13 sets, daily range): BP systolic 125–143; BP diastolic 45–85; PULSE 72–81; RESP 12–21; TEMP 97.8; O2SAT 88–97
[~2023-02-22] VITALS: Ht 157.5 cm; Wt 112.1 kg
[~2023-02-22 11:05] MED LIST changes: +DOCUMENT DATE & TIME OF BETA-BLOCKER PO ONE; -FLUT15.815; -TIOT4MIS3 INH; +cefazolin 2gm/D5W 100mL 100 ML IV ONE; +famotidine 20mg tablet PO ONE; +ringers solution, lacted 1,000 ML IV SCH
[2023-02-22] MEDS ORDERED: morphine 2 MG/ML inj. syringe IV PRN (12:15)
[2023-02-22] MEDS ORDERED: ringers solution, lacted 1,000 ML IV SCH (12:15)
[2023-02-22] MEDS ORDERED: fentaNYL/PF 50MCG/1 ML 2ML syringe IV PRN ×2 (12:15)
[2023-02-22] MEDS ORDERED: morphine 4 MG/ML inj SYRINge IV PRN (12:15)
[2023-02-22] MEDS ORDERED: labetalol 20mg/4ml (5mg/ml) syringe IV PRN (12:15)
[2023-02-22] MEDS ORDERED: ondansetron/PF 4mg/2ml inj IV PRN (12:15)
[2023-02-22] MEDS ORDERED: hydrALAZINE 20mg/ml inj. IV PRN (12:15)
[2023-02-22] MEDS ORDERED: LIDOcaine 1% 30ml preserv. free vial ONE (13:13)
[2023-02-22] MEDS ORDERED: BUPIVAcaine/PF 2.5mg/ml (0.25%) 10ml vial ONE (13:13)
[2023-02-22] MEDS ORDERED: BUPIVAcaine 2.5mg/ml inj 50ml vial (contains preservative) ONE (13:13)
[2023-02-22] MEDS ORDERED: BUPIVACAINE liposomal/PF 13.3 MG/ML vial IM ONE ×2 (13:14→14:13)
[2023-02-22] MEDS ORDERED: dexamethasone sod phosphate 10mg/ml inj ONE (13:25)
[2023-02-22] MEDS ORDERED: desflurane 240ml liquid inh. IH ONE (13:25)
[2023-02-22] MEDS ORDERED: albuterol 60 PUFF/8GM Inhaler (90mcg/1 puff) IH ONE (13:25)
[2023-02-22] MEDS ORDERED: midazolam 1 mg/ML 2ml injection ONE (13:42)
[2023-02-22] MEDS ORDERED: fentaNYL/PF 50MCG/1 ML 2ML syringe ONE (13:42)
[2023-02-22] MEDS ORDERED: LIDOcaine 2% (20mg/ml) 5ml vial ONE (13:44)
[2023-02-22] MEDS ORDERED: propofol inj 20 ML IV ONE (13:44)
[2023-02-22] MEDS ORDERED: rocuronium 10mg/ml inj IV ONE (13:44)
[2023-02-22] MEDS ORDERED: ondansetron/PF 4mg/2ml inj ONE (13:44)
[2023-02-22] MEDS ORDERED: sugammadex 200mg/2ml injection IV ONE (13:45)
[2023-02-22] MEDS ORDERED: albumin (Human) 5% 250ml 250 ML IV ONE (13:52)
[2023-02-22] MEDS ORDERED: BUPIVAcaine/PF 2.5 mg/ml (0.25%) 30ml vial IJ ONE ×2 (14:12→14:13)
[2023-02-22] MEDS ORDERED: LIDOcaine 1% 30ml preserv. free vial IJ ONE (14:12)
[2023-02-22] MEDS ORDERED: ipratropium/albuterol 3ml nebule IH ONE (14:30)
[2023-02-22] MEDS ORDERED: flumazenil 0.1 mg/ml inj. IV ONE (15:01)
[2023-02-22] MEDS ORDERED: oxyCODONE/APAP 5-325mg tablet PO PRN (15:45)
== END 2023-02-22 16:25 | disposition home or self-care (01) ==
LOC: PACU OUT 11:05
PROVIDERS: ATTEND Surgery
DX: K43.2 Incisional hernia without obstruction or gangrene (principal); E11.9 Type 2 diabetes mellitus without complications; E78.5 Hyperlipidemia, unspecified; E66.01 Morbid (severe) obesity due to excess calories; Z68.41 Body mass index [BMI] 40.0-44.9, adult; J44.9 Chronic obstructive pulmonary disease, unspecified; I11.0 Hypertensive heart disease with heart failure; I50.9 Heart failure, unspecified; Z79.84 Long term (current) use of oral hypoglycemic drugs; Z79.899 Other long term (current) drug therapy; Z88.5 Allergy status to narcotic agent; Z88.8 Allergy status to other drugs, medicaments and biological substances; Z90.49 Acquired absence of other specified parts of digestive tract; Z90.710 Acquired absence of both cervix and uterus; Z98.890 Other specified postprocedural states; F17.210 Nicotine dependence, cigarettes, uncomplicated; Z72.89 Other problems related to lifestyle; F12.90 Cannabis use, unspecified, uncomplicated; F15.90 Other stimulant use, unspecified, uncomplicated; Z85.51 Personal history of malignant neoplasm of bladder; Z85.43 Personal history of malignant neoplasm of ovary
CPT/HCPCS: 36415; 49593; 64488; 80053; 82948; 85025; 93005; 94640; 94660; 94760; C1781; C9290; J0690; J1100; J2250; J2405; J2704; J3010; J3490; J7030; J7120; P9045; Z7506; Z7508; Z7512; A4215; A4615; A4618

== ENCOUNTER 2024-12-03 01:49 | Emergency (ER) | payer MEDICARE, MEDICAID ==
[~2024-12-03] VITALS: Ht 160 cm; Wt 90.0 kg
[~2024-12-03 01:49] MED LIST changes: -DOCUMENT DATE & TIME OF BETA-BLOCKER PO ONE; -ROSU5TAB12 PO; +ROSU5TAB51 PO; -cefazolin 2gm/D5W 100mL 100 ML IV ONE; -famotidine 20mg tablet PO ONE; -ringers solution, lacted 1,000 ML IV SCH
[2024-12-03 02:05] VITALS: BP 108/71; TEMP 97.4
[2024-12-03 02:07] VITALS: PULSE 91; RESP 22; O2SAT 91
--- NOTE | 2024-12-03 02:08 | ELECTROCARDIOGRAPH REPORT ---
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
[2024-12-03 02:23] VITALS: PULSE 93; RESP 20; O2SAT 91
[2024-12-03 02:25] VITALS: RESP 17
--- NOTE | 2024-12-03 02:32 | Physician Documentation ---
History of Present Illness ~ Chief Complaint: Confused Stated Complaint: X-TITO Time Seen by MD: 02:17 Primary Medical Doctor: Dr. Hutchinson HPI 64-year-old female, history of COPD, esophageal cancer, reported methamphetamine use, who presents with confusion shortness of breath. Per the outside hospital, the patient presented with shortness of breath and had oxygen saturations in the 70s. She was found to be in atrial fibrillation, which is a new problem. She also reportedly has been using methamphetamines. She had an extensive workup. This showed a CT head that was negative. CT PE showed no pulmonary embolus but possible pneumonia. White blood cell count was 2.0 and ANC 2.1. She was treated with antibiotics. Lactate was normal. She was put on high-flow nasal cannula. She was transferred for higher level of care. Here in the ED, the patient tells me that she feels better, and wishes she could just go home. She denies any significant shortness of breath at this time. She tells me she does use up to 3 L nasal cannula oxygen at home. She denies any current chest pain. No other acute concerns Medication Reconciliation Allergies: Coded Allergies: gabapentin (Verified Allergy, Intermediate, FACE SWELLING, 02/21/23) levofloxacin (Verified Allergy, Mild, hives, 12/22/22) codeine (Verified Adverse Reaction, Intermediate, STOMACH PAIN/ ACHES, 02/21/23) Scheduled Benazepril HCl (Benazepril HCl), 1 TAB PO DAILY, (Reported) Metformin HCl (Metformin HCl), 2 TAB PO BID, (Reported) Metoprolol Succinate (Metoprolol Succinate), 1 TAB PO DAILY, (Reported) Multivitamin (Multi Vitamin Daily), 1 TAB PO DAILY, (Reported) Rosuvastatin Calcium (Rosuvastatin Calcium), 1 TAB PO DAILY, (Reported) Scheduled PRN Albuterol Sulfate (Ventolin Hfa), 2 PUFFS INH Q4H PRN for SOB or wheezing, (Reported) Past Medical History Past Medical History: COPD, Hernia, *CANCER* Past Surgical History: other Other Past Surgical History: Baldder biopsy, Bladder tumor removal Patient History: Patient reports no known family medical history. Alcohol Use: None Drug Use: methamphetamine Lives with: Family Lives In: Home Occupation: employed Review of Systems Constitutional: Reports: fever, weakness Respiratory: Reports: shortness of breath Physical Exam Vital Signs: Temperature: 97.4, Source: Axillary, Heart Rate: 91, Respiratory Rate: 22, BP: 108/71, Pulse Oximetry: 91, Weight: 90.000 Oxygen Flow Rate: 20.0 Physical Exam General: This is a nontoxic appearing middle-aged female sitting calmly in bed HEENT: Atraumatic, oropharynx appears dry Heart: Mild tachycardia Lungs: Course breath sounds bilateral, has a expiratory wheezes, mild tachypnea, oxygen saturations in the low 90s on high-flow nasal cannula Neuro: Alert and oriented self and location, does not appear confused Psychiatric: Calm and cooperative with exam Progress Results/Orders Results/Orders Completed Orders - NIGEL KU MD Stat Ekg (12/03/24 ) Vital Signs 12/03/24 12/03/24 12/03/24 12/03/24 02:05 02:07 02:23 02:25 Temp 97.4 Pulse 93 91 93 Resp 19 22 20 17 B/P (MAP) 108/71 Pulse Ox 92 91 91 O2 Flow Rate 20.0 35.0 25.0 FiO2 70 75 Consults/PCP Consults/PCP : Additional Comment Consult: I spoke to the internal medicine service, for admission in the hospital Medical Decision Making Additional Information The patient presents as a transfer from an outside hospital, with shortness of breath and confusion. It sounds like she was quite ill earlier today with significant hypoxia in a fever. Here now in the ED, she is alert and appears much improved. I reviewed the paperwork from the outside hospital which showed an extensive workup. She currently is on high-flow nasal cannula requiring pretty high settings to keep her oxygen saturations in the low 90s. We will repeat basic labs and she will be admitted to the medicine service for further workup and treatment. Departure Impression: Primary Impression: Acute confusion Additional Impression: Hypoxic respiratory failure Referrals: NO PRIMARY CARE PROVIDER (PCP) Signature Scribe Signature: na Attestation: NIGEL Pate MD Dec 03, 2024 02:32
[2024-12-03 03:13] LABS: MEAN PLATELET VOLUME 8.4 FL (7.4-10.4); RED CELL DISTRIBUTION WIDTH 16.8 % (11.5-14.5)
[2024-12-03 03:27] LABS: CREATININE 0.44 MG/DL (0.40-0.90); TOTAL CARBON DIOXIDE 26.1 MMOL/L (24-32); eCRCL 110 ML/MIN; eGFR > 90 ML/MIN
[2024-12-03 03:51] LABS: LYMPHOCYTES % (MANUAL) 9.0 % (21-51); MONOCYTES % (MANUAL) 7.0 % (2-12); NEUTROPHILS % (MANUAL) 84.0 % (42-75); PLATELET ESTIMATE NORMAL
[2024-12-03] MEDS ORDERED: PRED20TA PO (04:12)
== END 2024-12-03 04:30 | disposition home or self-care (01) ==
LOC: ER 01:50
DX: R41.0 Disorientation, unspecified (principal); J96.91 Respiratory failure, unspecified with hypoxia; J44.9 Chronic obstructive pulmonary disease, unspecified; I48.91 Unspecified atrial fibrillation; F15.90 Other stimulant use, unspecified, uncomplicated; Z85.01 Personal history of malignant neoplasm of esophagus; Z88.1 Allergy status to other antibiotic agents; Z88.5 Allergy status to narcotic agent; Z88.8 Allergy status to other drugs, medicaments and biological substances; Z79.84 Long term (current) use of oral hypoglycemic drugs; Z79.899 Other long term (current) drug therapy
CPT/HCPCS: 36415; 80053; 85007; 85025; 93005; 94760; 99284